=== PATIENT | female | born 1960 | race Caucasian/White ===

== ENCOUNTER → 2020-10-16 | Outpatient (CLI) | payer OTHER ==
--- NOTE | 2020-10-16 12:11 | RAD ---
EXAM: Left knee, 3 views. HISTORY: Pain. COMPARISON: None. FINDINGS: 3 views of the left knee are obtained. There is mild lateral compartment predominant joint space narrowing and spurring. There is enthesopathy along the superior patella. There is no fracture, dislocation or subluxation. There is no significant joint effusion. IMPRESSION: 1. Mild lateral compartment predominant tricompartmental osteoarthritis of the left knee. 2. No acute osseous finding. Electronically signed by: Ingrid Khan MD (10/16/2020 12:09 PM) [id number]
== END ==
LOC: RAD 11:31
PROVIDERS: ATTEND Family Medicine
DX: Z02.71 Encounter for disability determination (principal); M17.12 Unilateral primary osteoarthritis, left knee
CPT/HCPCS: 73560